=== PATIENT | female | born 1980 | race Two or more races ===

== ENCOUNTER → 2024-02-28 | Outpatient (CLI) | payer OTHER, SELFPAY ==
[~2024-02-28] MED LIST: PROHANCE 279.3MG/ML 15ML VIAL ONE
== END ==
LOC: M PLAIMG 14:50
PROVIDERS: ATTEND Nurse Practitioner Adult Health
DX: N60.19 Diffuse cystic mastopathy of unspecified breast (principal); N63.11 Unspecified lump in the right breast, upper outer quadrant; N63.13 Unspecified lump in the right breast, lower outer quadrant
CPT/HCPCS: A9576; C8908

== ENCOUNTER → 2024-03-05 | Outpatient (CLI) | payer OTHER ==
[~2024-03-05] MED LIST changes: +ISOVUE-370 76% 100ML VIAL As Ordered ONE; -PROHANCE 279.3MG/ML 15ML VIAL ONE
== END ==
LOC: M RAD 15:55 → EDUNIT# 03-06 16:30
PROVIDERS: ATTEND Otolaryngology
DX: K11.20 Sialoadenitis, unspecified (principal)

== ENCOUNTER → 2024-03-17 | Outpatient (CLI) | payer OTHER | LOC: M WHC 13:22 | PROVIDERS: ATTEND Nurse Practitioner Adult Health | DX: D48.61 Neoplasm of uncertain behavior of right breast (principal); N63.11 Unspecified lump in the right breast, upper outer quadrant; N60.01 Solitary cyst of right breast; R92.8 Other abnormal and inconclusive findings on diagnostic imaging of breast ==

== ENCOUNTER → 2024-04-30 | Outpatient (REF) | payer OTHER | LOC: M LAB REF 09:03 | PROVIDERS: ATTEND Nurse Practitioner Adult Health | DX: R10.13 Epigastric pain (principal) ==

== ENCOUNTER 2024-08-17 07:51 | Day surgery (SDC) | payer OTHER ==
[~2024-08-17] VITALS: Ht 152.4 cm; Wt 79.0 kg
[~2024-08-17 07:51] MED LIST changes: -ISOVUE-370 76% 100ML VIAL As Ordered ONE; +MAG100TA PO; +PANT40TA29 PO; +SUCR1TAB56 PO; +VITA200012 PO; +[UNRECOGNIZED DRUG - OTHER] PO; +b12
[2024-08-17] MEDS ORDERED: propofoL 200 MG/20 ML VIAL As Ordered ONE (08:22)
[2024-08-17] MEDS ORDERED: LIDOCAINE 2% 100MG/5ML SDV (FOR ANES.) As Ordered ONE (08:22)
[2024-08-17] MEDS ORDERED: fentaNYL 100 MCG/2 ML INJECTION As Ordered ONE (08:23)
[2024-08-17 09:09] VITALS: TEMP 98.1
[2024-08-17 09:25] VITALS: BP 128/89; O2SAT 98
== END 2024-08-17 09:45 | disposition home or self-care (01) ==
LOC: M OPP 07:51
PROVIDERS: ATTEND Internal Medicine Gastroenterology
DX: K44.9 Diaphragmatic hernia without obstruction or gangrene (principal); R10.13 Epigastric pain; Z79.899 Other long term (current) drug therapy; Z87.891 Personal history of nicotine dependence
CPT/HCPCS: 43239; 88305; J3010

== ENCOUNTER → 2024-09-01 | Outpatient (CLI) | payer OTHER | LOC: M RAD 07:38 | PROVIDERS: ATTEND Internal Medicine Gastroenterology | DX: R10.13 Epigastric pain (principal); R93.3 Abnormal findings on diagnostic imaging of other parts of digestive tract ==

== ENCOUNTER → 2024-09-15 | Outpatient (CLI) | payer OTHER ==
[~2024-09-15] MED LIST changes: +PROHANCE 279.3MG/ML 15ML VIAL ONE
== END ==
LOC: M PLAIMG 15:26
PROVIDERS: ATTEND Family Medicine
DX: R92.8 Other abnormal and inconclusive findings on diagnostic imaging of breast (principal)